=== PATIENT | female | born 1940 | race Caucasian/White ===

== ENCOUNTER 2021-03-17 11:51 | Inpatient (IN) | payer BC, MEDICARE, SELFPAY ==
[2021-03-17] VITALS (12 sets, daily range): BP systolic 93–131; BP diastolic 62–78; PULSE 76–102; RESP 18–26; TEMP 36.5–37.2; O2SAT 97–100; BMI 21.0
--- NOTE | ~2021-03-17 | XR_ITS ---
EXAMINATION: XR chest 2V DATE: 03/17/2021 18:32 INDICATION: Weakness TECHNIQUE: frontal and lateral views of the chest were obtained. COMPARISON: None FINDINGS: Mild biapical pleural-parenchymal scarring. No other airspace opacities, pulmonary edema, pleural eff usion or pneumothorax. The cardiomediastinal silhouette is normal. Calcified mediastinal lymph node a long with multiple small splenic calcifications consistent with old granulomatous disease. IMPRESSION: 1. Mild biapical pleural-parenchymal scarring. No acute cardiopulmonary disease. Reviewed, dictated and finalized at location H. ICAL COUNSELOR IMPRESSION: 1. Mild biapical pleural-parenchymal scarring. No acute cardiopulmonary disease .
--- NOTE | ~2021-03-17 | CT_ITS ---
EXAMINATION: CT brain wo con DATE: 03/18/2021 13:36 INDICATION: Altered mental status TECHNIQUE: Computed tomography (CT) of the head was performed without intravenous contrast. The dose- length product was 681.00 mGy-cm. Automated exposure control and iterative reconstruction technique w ere employed. COMPARISON: None FINDINGS: Generalized atrophy. There are scattered mild periventricular and subcortical white matter changes, most likely related to small vessel ischemic disease (microangiopathy). No ventriculomegaly or midline shift. Basilar cisterns are patent. No acute intracranial hemorrhage, infarction, mass or mass effect. No depressed skull fractures. Small right mastoid effusion. Paranasal sinuses are unrema rkable. IMPRESSION: 1. No acute intracranial abnormality. 2: Chronic age-related findings. Reviewed, dictated and finalized at location A. RIAL STRESS TESTER
--- NOTE | 2021-03-17 15:10 | ECG_ITS ---
Measurements Intervals [place] Rate: 87 P: 73 [place]: 121 QRS: 58 QRSD: 97 T: 45 QT: 378 QTc: 457 Interpretive Statements SINUS RHYTHM ATRIAL PREMATURE COMPLEX BASELINE ARTIFACT- I, II, III, AVR, AVF, V1-V6 BORDERLINE ECG Electronically Signed On 03-17-2021 15:53:10 DIRECT CARE COUNSELOR by Edgar Worthington D.O.
[2021-03-17 15:46] LABS: Add Urine Microscopic? YES; Appearance Urine Cloudy (Clear); Bilirubin Urine Negative (Negative); Blood Urine Negative (Negative); Color Urine Amber (Yellow); Glucose Urine UA Negative (Negative); Ketones Urine Negative (Negative); Leukocyte Esterase Ur Negative LEU/UL (Negative); Mucus Urine Moderate /lpf; Nitrate Urine Negative (Negative); Protein Urine Negative (Negative); Specific Grav Ur 1.025 (1.001-1.035); Squamous Epithelial Cell Urine Many /hpf (Few)
[2021-03-17 16:48] LABS: Basophils Absolute Auto 0.1 K/mm3 (0.0-0.1); Basophils Percent Auto 0.4 % (0.2-1.2); Eosinophils Absolute Auto 0.4 K/mm3 (0-0.3); Eosinophils Percent Auto 2.2 % (0-4.4); Hemoglobin 10.1 g/dL (12.0-15.0); Immature Granulocyte Absolute 0.19 K/mm3 (0.00-0.031); Immature Granulocyte Percent A 1.2 % (0-0.5); Lymphocytes Absolute Auto 0.73 K/mm3 (0.9-3.2); Lymphocytes Percent Auto 4.4 % (18.3-44.2); Mean Corpuscular HGB Conc 32.6 g/dl (32-36); Mean Corpuscular Hemoglobin 27.2 pg (26-34); Mean Corpuscular Volume 83.6 fl (80-100); Mean Platelet Volume 9.7 fl (7.4-10.4); Monocytes Absolute Auto 1.2 K/mm3 (0.1-0.6); Monocytes Percent Auto 7.3 % (2.6-8.5); Neutrophils Absolute Auto 13.9 K/mm3 (1.3-6.7); Neutrophils Percent Auto 84.5 % (45.5-73.1); Platelet Count Result 689 k/mm3 (150-375); Red Blood Count 3.71 M/mm3 (4.2-5.4); Red Cell Distribution Width 15.9 % (11.5-14.5); White Blood Count 16.5 K/mm3 (4.5-10.0)
[2021-03-17 16:58] LABS: Alanine Aminotransferase 33 U/L (4-35); Albumin Level 2.8 g/dL (3.5-5.1); Alkaline Phosphatase 117 U/L (38-126); Anion Gap 6 mmol/L (8-16); Aspartate Amino Transferase 55 U/L (14-36); Bilirubin,Total 0.4 mg/dL (0.2-1.3); Blood Urea Nitrogen 18 mg/dL (7-17); Calcium 8.1 mg/dL (8.4-10.2); Carbon Dioxide 27 mmol/L (22-30); Chloride 95 mmol/L (98-107); Estimated CRCL calculation 46 ml/min; Estimated Glomerular Filt Rate > 60; Glucose 118 mg/dL (65-110); Potassium 3.9 mmol/L (3.4-5.0); Sodium 128 mmol/L (137-145)
[2021-03-17] MEDS: SODIUM CHLORIDE 0.9% IV 1,000 ML 999 ML IV CONT (17:24)
[2021-03-17 17:56] LABS: Hypochromasia 1+ (NORMAL); Large Platelets Present; Platelet Estimate Increased (Adequate)
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
--- NOTE | 2021-03-17 18:51 | PC.NURSE ---
This nurse gave an update to [facility].
[2021-03-17] MEDS: SODIUM CHLORIDE 0.9% IV 1,000 ML 125 ML IV CONT (20:53)
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
--- NOTE | 2021-03-17 22:52 | ADMGEN ---
This patient, Mandy Castañeda, was admitted to Medical Room 255-. Patient/family oriented to hospital policies and general routines including ID bracelet, bed and alarms, visiting hours, pain management, procedures, bathroom and other care routines, personal items, smoking policy, room service/diet, and visiting hours. Information on how to activate the Rapid Response Team has been discussed. Patient/Family are encouraged to report perceived risks to care and to ask questions if they do not understand what they are told or what they should do.
--- NOTE | 2021-03-17 23:24 | PC.NURSE ---
MULTIPLE CALLS TO [facility] TO GET INFORMATION ABOUT PATIENT AND MEDICATION LIST. MESSAGES LEFT
[2021-03-18] VITALS: BP 117/64; PULSE 101; RESP 16; TEMP 36.9; O2SAT 98
[2021-03-18 04:04] VITALS: BP 118/55; PULSE 104; RESP 20; TEMP 37.1; O2SAT 97
[2021-03-18 05:46] LABS: Basophils Absolute Auto 0.1 K/mm3 (0.0-0.1); Basophils Percent Auto 0.7 % (0.2-1.2); Eosinophils Absolute Auto 0.4 K/mm3 (0-0.3); Eosinophils Percent Auto 2.6 % (0-4.4); Hematocrit 28.2 % (37.0-47.0); Hemoglobin 9.1 g/dL (12.0-15.0); Immature Granulocyte Absolute 0.17 K/mm3 (0.00-0.031); Immature Granulocyte Percent A 1.1 % (0-0.5); Lymphocytes Absolute Auto 0.82 K/mm3 (0.9-3.2); Lymphocytes Percent Auto 5.1 % (18.3-44.2); Mean Corpuscular HGB Conc 32.3 g/dl (32-36); Mean Corpuscular Hemoglobin 27.1 pg (26-34); Mean Corpuscular Volume 83.9 fl (80-100); Mean Platelet Volume 9.9 fl (7.4-10.4); Monocytes Absolute Auto 1.4 K/mm3 (0.1-0.6); Monocytes Percent Auto 8.5 % (2.6-8.5); Neutrophils Absolute Auto 13.1 K/mm3 (1.3-6.7); Platelet Count Result 637 k/mm3 (150-375); Red Blood Count 3.36 M/mm3 (4.2-5.4); Red Cell Distribution Width 16.1 % (11.5-14.5); White Blood Count 15.9 K/mm3 (4.5-10.0)
[2021-03-18 05:50] LABS: Anion Gap 9 mmol/L (8-16); Blood Urea Nitrogen 14 mg/dL (7-17); Calcium 7.7 mg/dL (8.4-10.2); Carbon Dioxide 22 mmol/L (22-30); Chloride 101 mmol/L (98-107); Estimated CRCL calculation 57 ml/min; Estimated Glomerular Filt Rate > 60; Glucose 103 mg/dL (65-110); Potassium 3.6 mmol/L (3.4-5.0); Sodium 132 mmol/L (137-145)
[2021-03-18 08:41] VITALS: BP 131/57; PULSE 94; RESP 18; TEMP 36.6; O2SAT 98
[2021-03-18] MEDS: SODIUM CHLORIDE 0.9% IV 1,000 ML 125 ML IV CONT ×2 (10:04→21:04)
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
[2021-03-18 16:07] VITALS: BP 124/79; PULSE 89; RESP 18; TEMP 36.4; O2SAT 99
[2021-03-18 19:48] VITALS: BP 100/69; PULSE 102; RESP 18; TEMP 36.8; O2SAT 96
[2021-03-18 23:50] VITALS: BP 111/53; PULSE 76; RESP 18; TEMP 36.5; O2SAT 99
[2021-03-19 04:33] VITALS: BP 105/58; PULSE 101; RESP 16; TEMP 36.7; O2SAT 98
[2021-03-19 05:46] LABS: Hematocrit 25.9 % (37.0-47.0); Hemoglobin 8.3 g/dL (12.0-15.0); Mean Corpuscular Hemoglobin 26.5 pg (26-34); Mean Corpuscular Volume 82.7 fl (80-100); Platelet Count Result 669 k/mm3 (150-375); Red Blood Count 3.13 M/mm3 (4.2-5.4); Red Cell Distribution Width 16.4 % (11.5-14.5); White Blood Count 14.7 K/mm3 (4.5-10.0)
[2021-03-19 05:49] LABS: Anion Gap 5 mmol/L (8-16); Blood Urea Nitrogen 12 mg/dL (7-17); Calcium 7.6 mg/dL (8.4-10.2); Carbon Dioxide 24 mmol/L (22-30); Chloride 104 mmol/L (98-107); Estimated CRCL calculation 57 ml/min; Estimated Glomerular Filt Rate > 60; Glucose 92 mg/dL (65-110); Sodium 133 mmol/L (137-145)
[2021-03-19] MEDS: SODIUM CHLORIDE 0.9% IV 1,000 ML 125 ML IV CONT (08:29)
[2021-03-19 08:33] VITALS: BP 130/47; PULSE 99; RESP 18; TEMP 36.7; O2SAT 99
--- NOTE | 2021-03-19 11:03 | PCOTNOTE ---
Attempted to evaluate pt. for occupational therapy. Pt. combative and unwilling to participate in evaluation
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
[2021-03-19 17:02] VITALS: BP 140/77; PULSE 100; RESP 20; TEMP 36.9; O2SAT 97
[2021-03-19 17:10] VITALS: PULSE 87
[2021-03-19] MEDS: APIXABAN 5 MG TABLET PO (17:10)
[2021-03-19] MEDS: PROPRANOLOL HCL 40 MG TABLET PO (17:10)
[2021-03-19 21:25] VITALS: BP 132/89; PULSE 93; RESP 16; TEMP 37.5; O2SAT 98
[2021-03-20] VITALS (9 sets, daily range): BP systolic 108–137; BP diastolic 55–70; PULSE 74–102; RESP 16–32; TEMP 36.6–37.9; O2SAT 93–97
[2021-03-20] MEDS: SODIUM CHLORIDE 0.9% IV 1,000 ML 125 ML IV CONT ×2 (02:01→16:04)
[2021-03-20 08:32] LABS: Hematocrit 26.9 % (37.0-47.0); Mean Corpuscular HGB Conc 33.5 g/dl (32-36); Mean Corpuscular Hemoglobin 27.7 pg (26-34); Mean Corpuscular Volume 82.8 fl (80-100); Mean Platelet Volume 9.4 fl (7.4-10.4); Platelet Count Result 617 k/mm3 (150-375); Red Blood Count 3.25 M/mm3 (4.2-5.4); Red Cell Distribution Width 16.2 % (11.5-14.5); White Blood Count 15.4 K/mm3 (4.5-10.0)
[2021-03-20 08:42] LABS: Anion Gap 5 mmol/L (8-16); Blood Urea Nitrogen 11 mg/dL (7-17); Calcium 7.3 mg/dL (8.4-10.2); Carbon Dioxide 23 mmol/L (22-30); Chloride 104 mmol/L (98-107); Estimated CRCL calculation 70 ml/min; Estimated Glomerular Filt Rate > 60; Glucose 118 mg/dL (65-110); Magnesium 1.9 mg/dL (1.6-2.3); Sodium 132 mmol/L (137-145)
[2021-03-20] MEDS: PROPRANOLOL HCL 40 MG TABLET PO ×2 (10:35→16:04)
[2021-03-20] MEDS: APIXABAN 5 MG TABLET PO ×2 (10:35→16:04)
--- NOTE | 2021-03-20 11:06 | PCOTNOTE ---
Addendum entered by Florence Terrazas, OT 03/20/21 11:09: Will attempt to follow up when pt. is appropriate Original Note: Attempted to evaluate pt. for occupational therapy. Pt. very confused and crying, reports she does not want to leave hospital or get out of bed to participate.
--- NOTE | 2021-03-20 12:11 | P.DS_ITS ---
DS: Summary Time Spent with Patient Time attestation: Total time spent providing and/or coordinating discharge ser vices: DS: Data Data Completed and Pending Labs on day of discharge: Labs from last 24 hours 03/20/21 03/20/21 08:22 08:22 WBC 15.4 H RBC 3.25 L Hgb 9.0 L Hct 26.9 L MCV 82.8 MCH 27.7 MCHC 33.5 RDW 16.2 H Plt Count 617 H MPV 9.4 Sodium 132 L Potassium 3.0 L Chloride 104 Carbon Dioxide 23 Anion Gap 5 L BUN 11 Creatinine 0.40 L Estim Creat Clear Calc 70 Estimated GFR > 60 Glucose 118 H Calcium 7.3 L Magnesium 1.9 Discharge Plan Discharge Attending physician on discharge: Guy Stock Discharging Clinician: Guy Stock Patient Disposition: NH [facility]cf/Asst Living Activity: as tolerated Diet: heart healthy Discharge Instructions: Patient to follow up with her primary care provider as soon as possible. Patient Instructions: Antibiotic Form, Apixaban (By mouth), Heart Failure (GEN) Stand Alone Forms: General Discharge Information Follow-up/Referrals: PHYSICIAN NOT ON STAFF,NONSTAFF [Primary Care Provider] - Discharge Medications: Continued propranolol 40 mg tablet 40 mg PO BID RF: 0 Eliquis 5 mg tablet 5 mg PO BID RF: 0 Date of admission: 03/18/21 17:11 Primary Care Provider: PHYSICIAN NOT ON STAFF,NONSTAFF Admitting Provider: Dao Doty V. Attending physician on admission: Dao Doty V. Condition: Stable
[2021-03-20 12:52] LABS: EDCOVIDSCREEN Positive (Negative)
--- NOTE | 2021-03-20 16:29 | PC.NURSE ---
This patient, Mandy Castañeda, was transferred to [facility] med surg on 03/20/21 at 1629. Personal belongings sent with patient. Report given to Shanti RUSHING. Appropriate documentation sent with patient.
[2021-03-21] VITALS (8 sets, daily range): BP systolic 112–138; BP diastolic 58–69; PULSE 70–91; RESP 18–20; TEMP 36.2–36.9; O2SAT 95–98
[2021-03-21] MEDS: SODIUM CHLORIDE 0.9% IV 1,000 ML 125 ML IV CONT ×2 (05:27→17:45)
[2021-03-21 06:32] LABS: Hematocrit 31.4 % (37.0-47.0); Hemoglobin 10.1 g/dL (12.0-15.0); Mean Corpuscular HGB Conc 32.2 g/dl (32-36); Mean Corpuscular Hemoglobin 26.2 pg (26-34); Mean Corpuscular Volume 81.6 fl (80-100); Mean Platelet Volume 10.8 fl (7.4-10.4); Platelet Count Result 691 k/mm3 (150-375); Red Blood Count 3.85 M/mm3 (4.2-5.4); Red Cell Distribution Width 16.3 % (11.5-14.5); White Blood Count 16.4 K/mm3 (4.5-10.0)
[2021-03-21 06:52] LABS: Anion Gap 6 mmol/L (8-16); Blood Urea Nitrogen 11 mg/dL (7-17); Calcium 7.6 mg/dL (8.4-10.2); Carbon Dioxide 21 mmol/L (22-30); Chloride 101 mmol/L (98-107); Estimated CRCL calculation 70 ml/min; Estimated Glomerular Filt Rate > 60; Glucose 97 mg/dL (65-110); Potassium 2.9 mmol/L (3.4-5.0); Sodium 128 mmol/L (137-145)
[2021-03-21] MEDS: PROPRANOLOL HCL 40 MG TABLET PO ×2 (09:31→16:14)
[2021-03-21] MEDS: APIXABAN 5 MG TABLET PO ×2 (09:31→16:14)
[2021-03-21] MEDS: POTASSIUM CHLORIDE 20 MEQ TABLET 40 MEQ PO (09:31)
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
[2021-03-21 15:26] LABS: SARS-CoV-2 RNA PCR Negative
[2021-03-21 16:45] LABS: Anion Gap 6 mmol/L (8-16); Blood Urea Nitrogen 12 mg/dL (7-17); Calcium 7.5 mg/dL (8.4-10.2); Carbon Dioxide 25 mmol/L (22-30); Chloride 99 mmol/L (98-107); Estimated CRCL calculation 70 ml/min; Estimated Glomerular Filt Rate > 60; Glucose 104 mg/dL (65-110); Magnesium 1.9 mg/dL (1.6-2.3); Potassium 3.3 mmol/L (3.4-5.0); Sodium 130 mmol/L (137-145)
[2021-03-22 06:00] VITALS: BP 132/77; PULSE 90; RESP 18; TEMP 36.8; O2SAT 97
[2021-03-22 06:19] LABS: Hematocrit 33.1 % (37.0-47.0); Hemoglobin 10.8 g/dL (12.0-15.0); Mean Corpuscular HGB Conc 32.6 g/dl (32-36); Mean Corpuscular Hemoglobin 26.9 pg (26-34); Mean Corpuscular Volume 82.5 fl (80-100); Mean Platelet Volume 10.7 fl (7.4-10.4); Platelet Count Result 608 k/mm3 (150-375); Red Blood Count 4.01 M/mm3 (4.2-5.4); Red Cell Distribution Width 16.5 % (11.5-14.5); White Blood Count 16.8 K/mm3 (4.5-10.0)
[2021-03-22] MEDS: SODIUM CHLORIDE 0.9% IV 1,000 ML 125 ML IV CONT ×4 (06:44→16:10)
[2021-03-22 06:47] LABS: Anion Gap 4 mmol/L (8-16); Blood Urea Nitrogen 12 mg/dL (7-17); Calcium 7.7 mg/dL (8.4-10.2); Carbon Dioxide 20 mmol/L (22-30); Chloride 103 mmol/L (98-107); Estimated CRCL calculation 89 ml/min; Estimated Glomerular Filt Rate > 60; Glucose 96 mg/dL (65-110); Potassium 3.2 mmol/L (3.4-5.0); Sodium 127 mmol/L (137-145)
[2021-03-22 08:00] VITALS: BP 142/71; PULSE 96; RESP 18; TEMP 36.8; O2SAT 98
[2021-03-22 08:35] VITALS: PULSE 90
[2021-03-22] MEDS: PROPRANOLOL HCL 40 MG TABLET PO ×2 (08:35→16:10)
[2021-03-22] MEDS: APIXABAN 5 MG TABLET PO ×2 (08:35→16:10)
[2021-03-22 12:00] VITALS: BP 125/62; PULSE 90; RESP 18; TEMP 36.5; O2SAT 95
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
[2021-03-22 16:00] VITALS: BP 144/76; PULSE 89; RESP 18; TEMP 36.4; O2SAT 94
[2021-03-22 16:10] VITALS: PULSE 72
== END 2021-03-22 17:50 | DRG 641 ==
LOC: ANHED 20:12 → ANH2MED 21:44 → ANH3MEDSUR 03-25 09:44
PROVIDERS: Nurse Practitioner Adult Health; Admitting Provider Internal Medicine; Emergency Provider Emergency Medicine; Visit Provider Family Medicine
DX: E87.1 Hypo-osmolality and hyponatremia (principal); E86.0 Dehydration; D64.9 Anemia, unspecified; Z20.822 Contact with and (suspected) exposure to COVID-19; D75.838 Other thrombocytosis; I50.9 Heart failure, unspecified; D72.829 Elevated white blood cell count, unspecified; Z96.642 Presence of left artificial hip joint
CPT/HCPCS: 36415; 51701; 70450; 71046; 80048; 80053; 81001; 83735; 85025; 85027; 87086; 87426; 93005; 96360; 96361; 97110; 97161; 97530; 99285; A9270; C9803; G0378; J3480; J7030; J7040; U0003; U0005